=== PATIENT | male | born 1955 | race Caucasian/White ===

== ENCOUNTER 2021-08-07 11:30 | Inpatient (IN) ==
[2021-08-07 13:18] LABS: Mucus,Urine Occasional /LPF (Occasional); RBC,Urine 4 /HPF (0-4)
[2021-08-07 13:20] LABS: Urine Appearance Clear (Clear); Urine Color Yellow (Yellow)
[2021-08-07 13:21] LABS: Bilirubin,Urine Negative (Negative); Blood, Urine Trace mg/dL (Negative); Glucose,Urine (UA) Negative (Negative); Ketones,Urine Negative (Negative); Nitrite,Urine Negative (Negative); Protein,Urine Negative (Negative); Urine Urobilinogen 0.2 eU/dL (<2.0)
[2021-08-07] MEDS ORDERED: HYDROmorphone 1 MG/1 ML SYRINGE IV STA (13:27)
[2021-08-07] MEDS ORDERED: ONDANSETRON 4 MG/2 ML VIAL IV ONE (13:27)
[2021-08-07 13:36] LABS: Basophils % 0.5 % (0.0-0.8); Eosinophils # 0.1 10*3/uL (0.0-0.87); Eosinophils % 1.8 % (0.00-10.9); Immature Granulocytes % 0.5 %; Immature Granulocytes Absolute 0.04 #; Lymphocytes # 1.3 10*3/uL (1.4-4.0); Lymphocytes % 17.7 % (21.2-54.2); Mean Corpuscular HGB Conc 32.6 GM/DL (32-36); Mean Corpuscular Volume 86.5 FL (87-102); Mean Platelet Volume 9.5 FL (9.6-12.0); Monocytes # 0.6 10*3/uL (0.11-0.8); Neutrophils % 71.5 % (38.7-73.9); Platelet Count 238 T/CUMM (130-400); Red Blood Count 4.97 MC/CUMM (3.8-5.5); Red Cell Distribution Width 14.1 % (9.3-17.3); White Blood Count 7.4 T/CUMM (4-12)
[2021-08-07 14:08] LABS: Albumin 3.8 G/DL (3.4-5.0); Bilirubin,Total 0.9 MG/DL (0.20-1.00); Calcium 9.5 MG/DL (8.5-10.1); Osmolality,Calculated 280.4 MOS/KG (273-304); Potassium 3.6 MMOL/L (3.5-5.1); Total Protein 8.1 G/DL (6.4-8.2)
[2021-08-07] MEDS ORDERED: ACETAMINOPHEN 325 MG TABLET PO PRN (14:22)
[2021-08-07] MEDS ORDERED: BISACODYL 5 MG TABLET PO PRN (14:22)
[2021-08-07] MEDS: metroNIDAZOLE INJ 500 MG/100 ML PREMIX IV SCH (16:20)
[2021-08-07] MEDS: LACTATED RINGERS 1,000 ML IV SCH (16:20)
[2021-08-07] MEDS: LEVOFLOXACIN INJ 750 MG/150 ML PREMIX IV SCH (18:05)
[2021-08-07] MEDS: carvediloL 25 MG TABLET PO SCH (23:57)
[2021-08-08] MEDS: metroNIDAZOLE INJ 500 MG/100 ML PREMIX IV SCH ×3 (00:29→20:20)
[2021-08-08] MEDS: HYDROmorphone 1 MG/1 ML SYRINGE IV PRN ×4 (01:35→10:45)
[2021-08-08] MEDS: ONDANSETRON 4 MG/2 ML VIAL IV PRN (04:38)
[2021-08-08 05:56] LABS: Basophils % 0.4 % (0.0-0.8); Eosinophils # 0.1 10*3/uL (0.0-0.87); Eosinophils % 1.4 % (0.00-10.9); Hematocrit 37.5 VOL% (42.0-52.0); Hemoglobin 12.2 GM/DL (14.0-18.0); Immature Granulocytes % 0.4 %; Immature Granulocytes Absolute 0.02 #; Lymphocytes # 0.8 10*3/uL (1.4-4.0); Lymphocytes % 15.6 % (21.2-54.2); Mean Corpuscular HGB Conc 32.5 GM/DL (32-36); Mean Corpuscular Volume 86.4 FL (87-102); Mean Platelet Volume 9.4 FL (9.6-12.0); Monocytes # 0.5 10*3/uL (0.11-0.8); Monocytes % 10.1 % (1.7-12.7); Neutrophils % 72.1 % (38.7-73.9); Platelet Count 193 T/CUMM (130-400); Red Blood Count 4.34 MC/CUMM (3.8-5.5); White Blood Count 4.9 T/CUMM (4-12)
[2021-08-08 06:20] LABS: Bilirubin,Total 3.4 MG/DL (0.20-1.00); Calcium 8.6 MG/DL (8.5-10.1); Osmolality,Calculated 277.5 MOS/KG (273-304); Potassium 3.8 MMOL/L (3.5-5.1); Total Protein 6.8 G/DL (6.4-8.2)
[2021-08-08] MEDS: AMIODARONE 200 MG TABLET PO SCH (11:43)
[2021-08-08] MEDS: POTASSIUM CHLORIDE 20 MEQ TABLET PO SCH (11:43)
[2021-08-08] MEDS: FUROSEMIDE 40 MG TABLET PO SCH (11:43)
[2021-08-08] MEDS: TAMSULOSIN 0.4 MG CAPSULE PO SCH (11:43)
[2021-08-08] MEDS: amLODIPine 2.5 MG TABLET PO SCH (11:44)
[2021-08-08] MEDS: carvediloL 25 MG TABLET PO SCH (13:01)
[2021-08-08] MEDS: PANTOPRAZOLE 40 MG TABLET PO SCH (13:01)
[2021-08-08] MEDS: LACTATED RINGERS 1,000 ML IV SCH (17:14)
[2021-08-08] MEDS ORDERED: LACTATED RINGERS 500 ML IV ONE (18:00)
[2021-08-08] MEDS: LEVOFLOXACIN INJ 750 MG/150 ML PREMIX IV SCH (22:42)
[2021-08-09] MEDS: carvediloL 25 MG TABLET PO SCH ×2 (00:09→09:39)
[2021-08-09] MEDS: metroNIDAZOLE INJ 500 MG/100 ML PREMIX IV SCH ×3 (04:38→21:13)
[2021-08-09 06:42] LABS: Basophils % 0.4 % (0.0-0.8); Eosinophils # 0.1 10*3/uL (0.0-0.87); Eosinophils % 2.1 % (0.00-10.9); Hematocrit 38.7 VOL% (42.0-52.0); Hemoglobin 12.4 GM/DL (14.0-18.0); Immature Granulocytes % 0.4 %; Immature Granulocytes Absolute 0.02 #; Lymphocytes # 1.1 10*3/uL (1.4-4.0); Lymphocytes % 20.9 % (21.2-54.2); Mean Corpuscular Volume 86.6 FL (87-102); Mean Platelet Volume 9.8 FL (9.6-12.0); Monocytes # 0.5 10*3/uL (0.11-0.8); Monocytes % 10.1 % (1.7-12.7); Neutrophils % 66.1 % (38.7-73.9); Platelet Count 196 T/CUMM (130-400); Red Blood Count 4.47 MC/CUMM (3.8-5.5); Red Cell Distribution Width 14.5 % (9.3-17.3); White Blood Count 5.2 T/CUMM (4-12)
[2021-08-09 06:50] LABS: INR 1.2; PT Patient Result 12.6 SECS (10.5-12.0)
[2021-08-09 06:57] LABS: Albumin 2.9 G/DL (3.4-5.0); Calcium 9.2 MG/DL (8.5-10.1); Osmolality,Calculated 274.7 MOS/KG (273-304); Potassium 3.2 MMOL/L (3.5-5.1); Total Protein 6.7 G/DL (6.4-8.2)
[2021-08-09] MEDS ORDERED: LACTATED RINGERS 1,000 ML IV SCH (08:00)
[2021-08-09] MEDS ORDERED: INDOMETHACIN SUPP 50 MG SUPP RECTAL ONE (08:00)
[2021-08-09] MEDS: LACTATED RINGERS 1,000 ML IV SCH (08:23)
[2021-08-09] MEDS ORDERED: POTASSIUM BICARB EFFERVESCENT 20 MEQ TAB.EFF PO ONE (09:01)
[2021-08-09] MEDS: PANTOPRAZOLE 40 MG TABLET PO SCH (09:22)
[2021-08-09] MEDS: TAMSULOSIN 0.4 MG CAPSULE PO SCH (09:22)
[2021-08-09] MEDS: POTASSIUM CHLORIDE 20 MEQ TABLET PO SCH (09:22)
[2021-08-09] MEDS ORDERED: MIDAZOLAM 2 MG/2 ML VIAL ONE (09:34)
[2021-08-09] MEDS ORDERED: fentaNYL 100 MCG/2 ML VIAL ONE (09:34)
[2021-08-09] MEDS: FUROSEMIDE 40 MG TABLET PO SCH (09:39)
[2021-08-09] MEDS: AMIODARONE 200 MG TABLET PO SCH (09:39)
[2021-08-09] MEDS: amLODIPine 2.5 MG TABLET PO SCH (09:39)
[2021-08-09] MEDS ORDERED: LIDOCAINE 2% 5 ML VIAL ONE (11:23)
[2021-08-09] MEDS ORDERED: SEVOFLURANE 1 UNIT/15 MINUTE INH ONE ×4 (11:23)
[2021-08-09] MEDS ORDERED: propofoL 200 MG/20 ML VIAL IV ONE (11:23)
[2021-08-09] MEDS ORDERED: ROCURONIUM 50 MG/5 ML VIAL IV ONE ×2 (11:23)
[2021-08-09] MEDS ORDERED: SUCCINYLCHOLINE 200 MG/10 ML VIAL ONE (11:23)
[2021-08-09] MEDS: carvediloL 12.5 MG TABLET PO SCH (21:14)
[2021-08-09] MEDS: LEVOFLOXACIN INJ 750 MG/150 ML PREMIX IV SCH (22:29)
[2021-08-10] MEDS: metroNIDAZOLE INJ 500 MG/100 ML PREMIX IV SCH ×3 (03:40→20:33)
[2021-08-10] MEDS: LACTATED RINGERS 1,000 ML IV SCH ×4 (04:01→23:54)
[2021-08-10 04:26] LABS: Albumin 2.9 G/DL (3.4-5.0); Bilirubin,Direct 0.89 MG/DL (0.0-0.20); Bilirubin,Indirect 0.7 MG/DL (0.0-1.0); Bilirubin,Total 1.6 MG/DL (0.20-1.00); Total Protein 5.9 G/DL (6.4-8.2)
[2021-08-10] MEDS: carvediloL 12.5 MG TABLET PO SCH ×3 (10:10→20:33)
[2021-08-10] MEDS ORDERED: fentaNYL 100 MCG/2 ML VIAL ONE ×2 (11:15→13:33)
[2021-08-10] MEDS ORDERED: ROCURONIUM 50 MG/5 ML VIAL IV ONE (11:15)
[2021-08-10] MEDS ORDERED: MIDAZOLAM 2 MG/2 ML VIAL ONE (11:15)
[2021-08-10] MEDS ORDERED: propofoL 200 MG/20 ML VIAL IV ONE (11:15)
[2021-08-10] MEDS ORDERED: SUCCINYLCHOLINE 200 MG/10 ML VIAL ONE (11:16)
[2021-08-10] MEDS ORDERED: LIDOCAINE 2% 5 ML VIAL ONE (11:16)
[2021-08-10] MEDS: amLODIPine 2.5 MG TABLET PO SCH (11:19)
[2021-08-10] MEDS: AMIODARONE 200 MG TABLET PO SCH (11:20)
[2021-08-10] MEDS ORDERED: TISSUE ADHESIVE 1 EACH APPLICATOR TOP ONE (12:52)
[2021-08-10] MEDS ORDERED: SEVOFLURANE 1 UNIT/15 MINUTE INH ONE (13:10)
[2021-08-10] MEDS ORDERED: NEOSTIGMINE 10 MG/10 ML VIAL ONE (13:11)
[2021-08-10] MEDS ORDERED: GLYCOPYRROLATE 0.4 MG/2 ML VIAL ONE ×2 (13:23)
[2021-08-10] MEDS ORDERED: ONDANSETRON 4 MG/2 ML VIAL ONE (13:23)
[2021-08-10] MEDS ORDERED: diphenhydrAMINE 50 MG/1 ML VIAL ONE (14:09)
[2021-08-10] MEDS ORDERED: diphenhydrAMINE 50 MG/1 ML VIAL IV ONE (14:17)
[2021-08-10] MEDS: ONDANSETRON 4 MG/2 ML VIAL IV PRN (14:35)
[2021-08-10] MEDS: HYDROmorphone 1 MG/1 ML SYRINGE IV PRN ×2 (15:02→23:46)
[2021-08-10] MEDS: POTASSIUM CHLORIDE 20 MEQ TABLET PO SCH (15:24)
[2021-08-10] MEDS: TAMSULOSIN 0.4 MG CAPSULE PO SCH (15:24)
[2021-08-10] MEDS: PANTOPRAZOLE 40 MG TABLET PO SCH (15:25)
[2021-08-10] MEDS ORDERED: PROMETHAZINE 25 MG/1 ML VIAL IM PRN (15:36)
[2021-08-10] MEDS: LEVOFLOXACIN INJ 750 MG/150 ML PREMIX IV SCH (21:52)
[2021-08-11] MEDS: metroNIDAZOLE INJ 500 MG/100 ML PREMIX IV SCH (03:26)
[2021-08-11] MEDS: HYDROmorphone 1 MG/1 ML SYRINGE IV PRN (08:05)
[2021-08-11] MEDS: POTASSIUM CHLORIDE 20 MEQ TABLET PO SCH (10:15)
[2021-08-11] MEDS: TAMSULOSIN 0.4 MG CAPSULE PO SCH (10:16)
[2021-08-11] MEDS: PANTOPRAZOLE 40 MG TABLET PO SCH (10:16)
[2021-08-11] MEDS: carvediloL 12.5 MG TABLET PO SCH (10:16)
[2021-08-11] MEDS: AMIODARONE 200 MG TABLET PO SCH (10:17)
[2021-08-11] MEDS: amLODIPine 2.5 MG TABLET PO SCH (10:18)
[2021-08-11 12:08] VITALS: BP 130/57
== END 2021-08-11 12:45 | disposition home or self-care (01) | DRG 418 ==
LOC: N.ED 11:30 → N.EDINP 11:30 → OBSVTOIN 14:21 → N.EDINP 14:58 → N.5E 15:33
PROVIDERS: ADMIT Student in an Organized Health Care Education/Training Program; ATTEND Student in an Organized Health Care Education/Training Program
PROC: ERCPWSP (ICD-10-PCS; 2021-08-09 08:35)
PROC: LAPCHOL (2021-08-10 12:11)